=== PATIENT | male | born 1945 | race Caucasian/White ===

== ENCOUNTER → 2019-09-27 | Outpatient (CLI) | payer OTHER ==
[~2019-09-27] VITALS: Ht 172.7 cm; Wt 99.8 kg
[~2019-09-27] MED LIST: COREG6.25 MG PO; FISH OIL 1,0001 EAC9 PO; GREEN TEA1 EACH PO; KEPPRA XR500 MG PO; LIPITOR80 MG PO; MIRAPEX0.5 MG PO; MULTI VITAMIN1 EACH PO; OCUVITE ADULT1 EAC2 PO; PLAVIX 75 MG TA75 MG PO; PRILOSEC OTC20 MG PO; PROSCAR 5MG TABL5 M1 PO; VALSARTAN-HCTZ1 EAC2 PO; ZETIA10 MG PO
--- NOTE | 2019-09-27 15:32 | P ---
[facility] [place] [address] [place] [address] PROCEDURE REPORT Name: MINISTERIO FERGUSON Room #: REG [facility]#: [id number] Admission: 09/27/19 Attend Phys: Charlie Alvarez MD Discharge: Date of : 49 Report #: [id number] THIS REPORT FOR: //name// CC: Charlie Jacobo DO DATE OF SERVICE: 09/27/2019 BRIEF HISTORY: The patient is a 73-year-old male with a history of 6 previous adenomas for high risk screening colonoscopy. PREOPERATIVE DIAGNOSIS: High risk screening colonoscopy. POSTOPERATIVE DIAGNOSES: 1. Colon polyps x 2. 2. Submucosal lesion, questionably lipoma. 3. Moderate internal hemorrhoids. MEDICATIONS: Deep sedation with propofol per anesthesia. SPECIMENS: 1. Polyp from cecum. 2. Polyp at splenic flexure. 3. Biopsy submucosal lesions at 30 cm. ESTIMATED BLOOD LOSS: 3 mL. PROCEDURE: Colonoscopy to cecum and terminal ileum with biopsy. FINDINGS: Prior to propofol sedation, procedure of colonoscopy discussed with the patient as well as potential risks and its complications. He indicates he understands and desires to proceed. DESCRIPTION OF PROCEDURE: With the patient in left lateral decubitus position, digital examination was completed, which revealed no abnormalities. Subsequently, the Olympus video colonoscope was introduced in the rectum, advanced under direct vision to the cecum, done with minimal difficulty. Cecum was identified by the ileocecal valve and the appendiceal orifice. I was able to visualize the distal segment of terminal ileum, which was inspected and noted to be unremarkable. At that point, the scope was slowly withdrawn and careful circumferential views were obtained. Upon slow withdrawal of the scope, the prep was good. The mucosa was within normal limits, normal vascular pattern, normal light reflex. As we withdrew the scope, he was found to have an excellent prep. In the cecum, a diminutive polyp was seen and removed with biopsy forceps. Scope was further withdrawn and no additional abnormalities [facility] [address] [place] [address] PROCEDURE REPORT Name: MINISTERIO FERGUSON Room #: REG [facility].#: [id number] Admission: 09/27/19 Attend Phys: Charlie Alvarez MD Discharge: Date of : 49 Report #: [id number] were noted until the splenic flexure was reached, at which point a diminutive polyp was seen and removed with biopsy forceps. The scope was withdrawn further and in the sigmoid colon, he was noted to have moderately severe diverticular disease without endoscopic evidence of diverticulitis. At 30 cm, there was a 1.5 cm submucosal lesion. There is a slightly yellowish appearance. It was soft. This may be a lipoma. However, multiple biopsies were obtained. The scope was further withdrawn and no additional lesions were seen. The scope was withdrawn in the rectum, no abnormalities were seen. Upon retroflexion, no abnormalities were seen. Scope was withdrawn. The patient tolerated the procedure well. CONDITION OF THE PATIENT UPON DISCHARGE: Following procedure, the patient drowsy, aroused, conversant and will be discharged home when fully ambulatory. INSTRUCTIONS TO THE PATIENT AND FAMILY AT THE TIME OF DISCHARGE: We will follow up on the pathology. I suspect that 2 small polyps are adenomas. As far as submucosal lesion, I do not see that this has been identified in the past. We will follow up on the pathology and make further recommendations. He will otherwise return to the care of Dr. Jacobo. <ELECTRONICALLY SIGNED> By: Charile Alvarez MD 09/27/19 1532 [id number] Charlie Alvarez MD /nt
--- NOTE | 2019-10-01 16:06 | PATH ---
[facility] [place] [address] [address] PATHOLOGY RPT PROCEDURE Name: MINISTERIO FERGUSON Room #: REG [facility].#: [id number] Admission: 09/27/19 Date of : 49 Discharge: Report #: [id number] Path Case #: [id number] [facility] Accession Number: [id number] . 01 Material submitted: . PART A: cecum - POLYP AT CECUM PART B: splenic flexure - POLYP AT SPLENIC FLEXURE PART C: colon - SUBMUCOSAL LESION AT 30 CM . 01 Clinical history: . History of polyp . 02 Diagnosis: A. Polyp, at cecum, endoscopic biopsy: - Tubular adenoma. - Negative for high-grade dysplasia. . B. Polyp, at splenic flexure, endoscopic biopsy: - Tubular adenoma. - Negative for high-grade dysplasia. . C. Submucosal lesion, at 30 cm, endoscopic biopsy: - Fragments of smooth muscle with focal nuclear atypia (please see comment). - Overlying epithelium as well as lamina propria showing nonspecific reactive changes. . (IUV:psych nurse; 09/28/2019) MBR 09/28/2019 1328 Local . 02 Comment: Fragments of smooth muscle with scattered rare nuclear atypia are identified underneath the surface epithelium with reactive changes. Immunohistochemical stains are ordered and the results of these will be reported in an addendum along with a refined addendum diagnosis if required. (IUV:psych nurse; 09/28/2019) . 02 Addendum: . This addendum is issued subsequent to reviewing the multiple properly controlled immunohistochemical stains performed on block C1. The "submucosal lesion" shows reactivity with SMA. The lesion appears non-reactive to CD117 and DOG-1 immunohistochemical stains. Findings are suggestive of either muscularis mucosae, or a leiomyoma within this biopsy tissue. There is no evidence of gastrointestinal stromal tumor based on the non-reactive immunohistochemical stains. The originally rendered addendum diagnosis is further refined as follows: [facility] [address] [place] [address] PATHOLOGY RPT PROCEDURE Name: ADAMMINISTERIO Davey [id number] Admission: 09/27/19 Date of : 49 Discharge: Report #: [id number] Path Case #: [id number] . Part C. Submucosal lesion, at 30 cm, endoscopic biopsy: - Fragments of smooth muscle with focal nuclear atypia. - Negative for gastrointestinal stromal tumor. - Overlying epithelium as well as lamina propria showing non-specific reactive changes. (IUV/db; 10/01/2019) . Professional services performed by [facility] at [facility], [address] , [place] [address]. [facility] performed by [facility] at [address] [place] [address], [address], [place] [address]. QMS/10/01/2019 Addendum Electronically Signed by Crystal Rivas MD, Pathologist . 02 Electronically signed: . Crystal Rivas MD, Pathologist NPI- [id number] . 01 Gross description: . A. The specimen is received in formalin, labeled "Ministerio Adam, polyp at cecum". Received is a segment of pale briceno soft tissue measuring 0.8 cm in maximum dimensions. The specimen is submitted entirely in cassette A1. . B. The specimen is received in formalin, labeled "Ministerio Adam, polyp at splenic flexure". Received is a segment of pale briceno soft tissue measuring 0.4 cm in maximum dimensions. The specimen is submitted entirely in cassette B1. . C. The specimen is received in formalin, labeled "Ministerio Adam, submucosal lesion at 30 cm". Received are four segments of pale briceno soft tissue measuring 0.3 cm each in maximum dimensions. The specimen is submitted entirely in cassette C1. (CAA; 09/27/2019) QAC/QAC 09/27/2019 1713 Local . 02 Pathologist provided ICD-10: D12.0, D12.3, Z86.010 . 02 CPT . 793408, 209755, 009246, C62082, U29086 Specimen Comment: A courtesy copy of this report has been sent to [phone], [phone] Specimen Comment: [id number] Specimen Comment: Report sent to / DR SPIVEY Performed at: [address] [facility] [address], [place], [place] [id number] MD Jani Martínez MD Phone: [phone] [facility] [address] [place] [address] PATHOLOGY RPT PROCEDURE Name: MINISTERIO FERGUSON Room #: REG [facility].#: [id number] Admission: 09/27/19 Date of : 49 Discharge: Report #: [id number] Path Case #: [id number] Performed at: [address] [id number] MD Crystal Rivas MD Phone: [phone]
== END | disposition home or self-care (01) ==
LOC: GI 07:07
DX: Z12.11 Encounter for screening for malignant neoplasm of colon (principal); Z86.010 Personal history of colon polyps; D12.0 Benign neoplasm of cecum; D12.3 Benign neoplasm of transverse colon; K63.89 Other specified diseases of intestine; K64.8 Other hemorrhoids; K21.9 Gastro-esophageal reflux disease without esophagitis; I10 Essential (primary) hypertension; I48.91 Unspecified atrial fibrillation; E78.5 Hyperlipidemia, unspecified; I73.9 Peripheral vascular disease, unspecified; N40.0 Benign prostatic hyperplasia without lower urinary tract symptoms; Z98.890 Other specified postprocedural states; Z79.899 Other long term (current) drug therapy; Z88.8 Allergy status to other drugs, medicaments and biological substances; Z87.891 Personal history of nicotine dependence; Z95.1 Presence of aortocoronary bypass graft; Z98.41 Cataract extraction status, right eye; Z98.42 Cataract extraction status, left eye; Z96.641 Presence of right artificial hip joint
CPT/HCPCS: 62110; 62900